=== PATIENT | female | born 1950 | race Caucasian/White ===

== ENCOUNTER 2016-10-24 14:25 | Emergency (ER) | payer OTHER ==
[~2016-10-24] VITALS: Ht 157.5 cm; Wt 77.1 kg
[~2016-10-24 14:25] MED LIST: AMITRIPTYLINE H10 M2 PO; BENTYL10 M1 PO; CENTRUM SILVER1 EAC3 PO; FLAX SEED OIL1000 M2 PO; LANSOPRAZOLE30 M2 PO; LEVSIN0.125 M1 SL; MOBIC15 M1 PO; REGLAN10 M1 PO; SEA-OMEGA 1,001 EACH PO; VICODIN5-300 PO; VITAMIN D31000 UNI1 PO; ZOFRAN ODT4 M1 SL
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
[2016-10-24 16:37] VITALS: BP 166/73
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
[2016-10-24] MEDS ORDERED: ULTRAM50 M1 PO (17:12)
[2016-10-24] MEDS ORDERED: BACLOFEN10 M1 PO (17:12)
== END 2016-10-24 17:25 ==
LOC: ERH 14:25
DX: S16.1XXA Strain of muscle, fascia and tendon at neck level, initial encounter (principal); V49.40XA Driver injured in collision with unspecified motor vehicles in traffic accident, initial encounter; Y93.9 Activity, unspecified; Y92.9 Unspecified place or not applicable

== ENCOUNTER 2016-12-08 06:08 | Emergency (ER) | payer OTHER ==
[~2016-12-08 06:08] MED LIST changes: +BACLOFEN10 M1 PO; +ULTRAM50 M1 PO
--- NOTE | 2016-12-08 07:18 | ED GI/GU/ABDOMINAL COMPLAINT ---
History of Present Illness General Chief Complaint: General Adult Stated Complaint: THROAT SPASMS Source: patient, family, old records Exam Limitations: no limitations Vital Signs & Intake/Output Vital Signs & Intake/Output Vital Signs Date Time Temp Pulse Resp B/P B/P Pulse O2 O2 Flow FiO2 Mean Ox Delivery Rate 12/08 0953 96.0 70 20 124/62 95 Room Air 12/08 0756 99 12/08 0721 97.0 74 16 170/79 99 Room Air Allergies Coded Allergies: Penicillins (Severe, ANAPHYLAXIS 06/28/16) Reconcile Medications Amitriptyline HCl 10 MG TABLET 1 TAB PO QPM PRN IBS (Reported) Cholecalciferol (Vitamin D3) (Vitamin D3) 1,000 UNIT CAPSULE 1 CAP PO DAILY SUPPLEMENT (Reported) Desipramine (Norpramin) 10 MG TABLET 1 TAB PO DAILY PRN UNKNOWN (Reported) Diazepam 2 MG TABLET 1 TAB PO DAILY PRN SPASMS (Reported) Dicyclomine Hydrochloride (Bentyl) 10 MG CAPSULE 1 CAP PO PRN IBS (Reported) Flaxseed Oil (Flax Seed Oil) 1,000 MG CAPSULE 1 CAP PO DAILY SUPPLEMENT ( Reported) Hyoscyamine (Levsin) 0.125 MG TABLET 1 TAB SL PRN ESOPHAGEAL SPASMS (Reported ) Lansoprazole 30 MG CAPSULE.DR 1 CAP PO BID GI (Reported) Meloxicam (Mobic) 15 MG TABLET 1 TAB PO PRN CAROTIDYNIA (Reported) Metoclopramide HCl (Reglan) 10 MG TABLET 1-2 TAB PO DAILY GI (Reported) Multivit-Min/FA/Lycopen/Lutein (Centrum Silver Tablet) 1 EACH TABLET 1 TAB PO DAILY SUPPLEMENT (Reported) [place]-3S/Dha/Epa/Fish Oil (Sea-[place] 1,000 MG Softgel) 600-1,000MG CAPSULE 1 CAP PO DAILY SUPPLEMENT (Reported) Ondansetron (Zofran Odt) 4 MG TAB.RAPDIS 1 TAB SL PRN N/V (Reported) Triage Nurses Notes Reviewed? yes ? N Is pt currently ? No Onset: Abrupt Duration: since 3 am Timing: multiple episodes today Location: ESOPHAGUS Activities at Onset: sleep Prior Abdominal Problems: similar symptoms No Modifying Factors: none HPI: 66 year old female presents with esophageal spasm which woke her up since 3 am this morning. Complaint of wretching, chest pain. Took 3 doses of levsin, 1 dose of valium and zofran at home. History of multiple similar episodes in the past and a few prior er visits. Past History Travel History Traveled to [place] past 21 day No Medical History Any Pertinent Medical History? 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 No Review of Systems Review of Systems Constitutional: Denies: chills, fever. EENTM: Reports: no symptoms. Respiratory: Reports: no symptoms. Cardiovascular: Reports: chest pain (ESOPHAGUS). GI: Denies: abdominal pain, nausea, vomiting. Genitourinary: Reports: no symptoms. Musculoskeletal: Denies: back pain. Skin: Reports: no symptoms. Neurological/Psychological: Reports: anxiety. Hematologic/Endocrine: Denies: bruising, bleeding, polyuria, polydipsia. Immunologic/Allergic: Reports: no symptoms. All Other Systems: Reviewed and Negative Physical Exam Physical Exam General Appearance: alert, awake, anxious, mild distress, moderate distress, thin Head: atraumatic, normal appearance Eyes: Bilateral: normal appearance, PERRL, EOMI. Ears, Nose, Throat, Mouth: hearing grossly normal, moist mucous membrane Neck: normal inspection, supple, full range of motion Respiratory: normal breath sounds, chest non-tender, no respiratory distress Cardiovascular: regular rate/rhythm Peripheral Pulses: 2+ radial (R), 2+ radial (L) Gastrointestinal: normal bowel sounds, soft, non-tender Extremities: normal range of motion Neurologic/Psych: no motor/sensory deficits, awake, alert, oriented x 3 Skin: intact, normal color, warm/dry Core Measures ACS in differential dx? Yes ASA ordered for poss ACS? No-ACS ruled out Severe Sepsis Present: No Septic Shock Present: No Progress Differential Diagnosis: ESOPHAGEAL SPASMS Plan of Care: Orders Procedure Date/time Status TROPONIN LEVEL 12/08 716 Complete COMPREHENSIVE METABOLIC PANEL 12/08 716 Complete CBC WITHOUT DIFFERENTIAL 12/08 716 Complete EKG 12/08 716 Active Laboratory Tests 12/08/16 0744: Anion Gap 12, Estimated GFR > 60, BUN/Creatinine Ratio 17.1, Glucose 102 H, Calcium 9.2, Total Bilirubin 0.3, AST 20, ALT 28, Alkaline Phosphatase 119, Troponin I < 0.01, Total Protein 7.0, Albumin 4.2, Globulin 2.8, Albumin/ Globulin Ratio 1.5, CBC w Diff MAN DIFF ORDERED, RBC 4.68, MCV 83.0, MCH 26.7 L , RDW 15.5 H, MPV 8.4, Gran % 87.6 H, Lymphocytes % 8.5 L, Monocytes % 3.1, Eosinophils % 0.4, Basophils % 0.4, Absolute Granulocytes 7.8 H, Absolute Lymphocytes 0.8 L, Absolute Monocytes 0.3, Absolute Eosinophils 0, Absolute Basophils 0, Platelet Estimate VERIFIED BY SMEAR, Anisocytosis 1+, PUBS MCHC 32.2 L PATIENT IMPROVED AFTER ZOFRAN, MORPHINE, FLUIDS. (COSME RODRIGUEZ,DI) Initial ED EKG: NSR Departure Departure Time of Disposition: 1015 Disposition: HOME OR SELF CARE Condition: Stable Clinical Impression Primary Impression: Esophageal spasm Referrals: KARO RODRIGUEZ,RAUL Krueger (PCP/Family) Additional Instructions: Continue your regularly prescribed medications and follow up with your GI doctor in the office. Return as needed. Departure Forms: Customer Survey General Discharge Information
[2016-12-08 07:56] LABS: ABSOLUTE BASOPHIL COUNT 0 /CUMM (0.0-0.2); ABSOLUTE EOSINOPHIL COUNT 0 /CUMM (0.0-0.7); ABSOLUTE GRANULOCYTE CT 7.8 /CUMM (1.4-6.5); ABSOLUTE LYMPH COUNT 0.8 /CUMM (1.2-3.4); ABSOLUTE MONOCYTE COUNT 0.3 /CUMM (0.10-0.60); BASOPHIL % 0.4 % (0.0-2.0); EOSINOPHIL % 0.4 % (0-5); GRANULOCYTE % 87.6 % (42.2-75.2); HEMATOCRIT 38.9 % (37-47); MEAN CORPUSCULAR HGB 26.7 PG (27.0-31.0); MEAN CORPUSCULAR HGB CONC 32.2 G/DL (33.0-37.0); MEAN PLATELET VOLUME 8.4 FL (7.4-10.4); PLATELET COUNT 275 /CUMM (130-400); RBC DISTRIBUTION WIDTH 15.5 % (11.5-14.5); RED BLOOD CELL CT 4.68 /CUMM (4.20-5.40); WHITE BLOOD CELL COUNT 8.9 /CUMM (4.8-10.8)
[2016-12-08 09:53] VITALS: BP 124/62
[2016-12-08] MEDS ORDERED: DIAZEPAM2 M1 PO (09:57)
[2016-12-08] MEDS ORDERED: NORPRAMIN10 MG PO (09:59)
== END 2016-12-08 10:30 ==
LOC: ERH 06:08
PROVIDERS: Emergency Medicine
DX: K22.4 Dyskinesia of esophagus (principal); R07.9 Chest pain, unspecified
CPT/HCPCS: 93005; 93010; 96361; 96374; 96375; J1610; J2405

== ENCOUNTER 2017-08-30 08:49 | Emergency (ER) | payer OTHER ==
[~2017-08-30] VITALS: Ht 160 cm; Wt 77.1 kg
[~2017-08-30 08:49] MED LIST changes: +DIAZEPAM2 M1 PO; +NORPRAMIN10 MG PO
[2017-08-30 09:07] VITALS: BP 161/82
== END 2017-08-30 09:57 | disposition admitted as inpatient to this hospital (09) ==
LOC: ERH 08:49
DX: K22.4 Dyskinesia of esophagus (principal)